=== PATIENT | male | born 1965 | race Caucasian/White ===

== ENCOUNTER 2025-07-11 07:44 | Emergency (ER) | payer OTHER, SELFPAY ==
[2025-07-11] VITALS (41 sets, daily range): BP systolic 138–172; BP diastolic 103–120; PULSE 91–130; TEMP 36.4; O2SAT 86–98; BMI 25.8
--- NOTE | 2025-07-11 07:50 | XR_ITS ---
[place] [id number] Patient Name: LASHELL VELASQUEZ MRN: [id number] date: 1965 Sex: M Assigned Patient Location: ED.MAIN Current Patient Location: ED.MAIN Accession/Order Number: [id number] Exam Date: 07/11/2025 08:59 Report Date: 07/11/2025 09:00 At the request of: NASIR NAVAS DO Procedure: XR chest 1V XR chest 1V 07/11/2025 8:48 AM SIGNS AND SYMPTOMS: ^chest pain ^Y PROTOCOL: Frontal radiograph of the chest COMPARISON: None FINDINGS: The trachea is midline. The heart and mediastinal structures are within normal limits. The lung parenchyma is clear. The bony thorax is intact. Degenerative changes are present in the shoulders and thoracic spine. XR/XR chest 1V IMPRESSION: No acute cardiopulmonary pathology. Impression dictated by: Huan Lazar M.D. 07/11/2025 9:00 AM Dictation Location: [place] [address] Electronically authenticated by: [id number] Y Date: 07/11/2025 09:00
--- NOTE | 2025-07-11 07:51 | CT_ITS ---
[address] [address] Patient Name: LASHELL VELASQUEZ MRN: [id number]:[id number] date: 1965 Sex: M Assigned Patient Location: ED.MAIN Current Patient Location: ED.MAIN Accession/Order Number: [id number] Exam Date: 07/11/2025 09:24 Report Date: 07/11/2025 09:33 At the request of: NASIR NAVAS DO Procedure: CT angio chest CT angio chest 07/11/2025 8:48 AM SIGN AND SYMPTOMS: Chest pain, Dissection protocol please CONTRAST: 100 mL of intravenous Omnipaque 350 TECHNIQUE: Multidetector CT axial slices of the chest were obtained with IV contrast. Multiplanar and 3-D reformats were performed and viewed on a separate workstation and reviewed to further define anatomy and possible pathology. CT was performed with one or more of the following dose reduction techniques: Automated exposure control, adjustment of the mA and/or kV according to patient size, or use of iterative reconstruction technique. COMPARISON: 07/11/2025. FINDINGS: Lower neck: Thyroid gland within normal limits, no supraclavicle adenopathy. Vessels: Atherosclerotic changes are noted in the thoracic aorta. There is no evidence of pulmonary embolism. The thoracic aorta is normal in course and caliber without evidence of dissection or aneurysmal dilatation. Mediastinum and Rupa: Calcified mediastinal and hilar lymph nodes are noted. Heart: Normal size. No pericardial effusion. Airways: Within normal limits Lungs: Emphysematous changes are noted in the lung parenchyma. Pleura: Within normal limits. Chest Wall: Within normal limits. Upper Abdomen: There is a 3.5 cm cyst in the right hepatic lobe. Bones: Degenerative changes are noted in the thoracic spine. There is a compression deformity of the superior endplate of the T4 vertebral body which is of uncertain acuity. CT/CT angio chest IMPRESSION: There is no evidence of pulmonary embolism. The thoracic aorta is normal in course and caliber without evidence of dissection or aneurysmal dilatation. There is a compression deformity of the superior endplate of the T4 vertebral body which is of uncertain acuity. Impression dictated by: Huan Lazar M.D. 07/11/2025 9:33 AM Dictation Location: [place] [address] Electronically authenticated by: [id number] Y Date: 07/11/2025 09:33
--- NOTE | 2025-07-11 07:53 | ED_ITS ---
HPI - Chest Pain General Chief Complaint: Chest Pain Stated Complaint: CHEST PAIN Time Seen by Provider: 07/11/25 07:50 Source: patient Mode of arrival: Wheelchair Limitations: no limitations History of Present Illness HPI narrative: The patient is a 59-year-old male with really an unknown medical history. He has not been to a doctor in greater than 20 years. His presenting to the emergency department this morning with complaints of chest and back pain. Patient states most of the pain is in his back between his shoulder blades. But he also has pain in his chest. The pain then radiates to his axilla which feels numb . Patient denies any pain in his jaw or abdomen. Patient denies shortness of breath but is tachypneic on acquisition of history. He denies any nausea or diaphoresis. Patient does not have any history of known coronary artery disease. No reported high blood pressure, high cholesterol, diabetes. Patient however does smoke cigars which she has 2-3 a day. Patient reports that he only drinks alcohol about once a week. His last time was where he states he had a couple of beers. Patient stated he woke up for work in his usual state of health and drove himself to work. But by 06:45 the chest pain developed and he was transported to the emergency department by coworker. Related Data Previous Rx's ?Medication ?Instructions ?Recorded albuterol sulfate 90 mcg/actuation 2 inh inhalation Q4 H PRN shortness 07/11/25 aerosol inhaler (Ventolin HFA) of breath or wheezing # 8.5 grams amlodipine 5 mg tablet (Norvasc) 5 mg PO DAILY #30 tab s 07/11/25 prednisone 10 mg tablet See Rx Instructions .Route 0 07/11/25 .COMPLEX #30 tabs Allergies Allergy/AdvReac Type Severity Reaction Status Date / Time No Known Drug Allergies Allergy Verified 07/11/25 07:46 Review of Systems ROS Narrative 10 Systems were reviewed, and unless not ed in the HPI, all other systems are reviewed, unremarkable, or noncontributory. [facility] Social History Little interest or pleasure in doing things: not at all Feeling down, depressed, or hopeless: not at all Exam Narrative Exam Narrative: Prior to examining the patient, I have washed with hospital approved and provided Antiseptic Hand Vacuum Pan Tender and have also applied gloves.? Prior to t ouching the patient, I asked for consent to examine the patient.? General: Alert and oriented, well nourished, moderate distress. Anxious in appearance. Face is very flushed. Eye: PERRL, EOMI, normal conjunctiva. HENT: Normocephalic, normal hearing, moist oral mucosa, no scleral icterus, patient had ketotic breath Neck: Supple, non-tender, no carotid bruits, no JVD, no lymphadenopathy. Lungs: Clear to auscultation and percussion, non-labored respiration. Coarse breath sounds with scant end expiratory wheezing. Tachypnea. Conversational dyspnea. Heart: Tachycardic rate, regular rhythm, no murmur, gallop or edema. Abdomen: Soft, non-tender, non-distended, normal bowel sounds, no masses. Musculoskeletal: Normal range of motion and strength, no tenderness or swelling. Skin: Skin is warm, dry and pink, no rashes or lesions. Neurologic: Awake, alert, and oriented X3, CN II-XII intact. Psychiatric: Cooperative, appropriate mood and affect.? Following the conclusion of the examination, I have washed my hands thoroughly after removing examination gloves. Constitutional Vital Signs, click to edit/add: Last Vital Signs Temp 97.6 F 07/11/25 07:46 Pulse 95 H 07/11/25 13:42 Resp 13 07/11/25 13:42 BP 154/110 H 07/11/25 13:42 Pulse Ox 94 L 07/11/25 13:42 O2 Del Method Room Air 07/11/25 13:42 O2 Flow Rate 4 07/11/25 09:56 Course Course Hospital Course: Patient arrived in the emergency department and all of the clinical staff attended to the patient very quickly. An EKG was quickly run, an IV was established and blood work was drawn. Reevaluation(s) Reevaluation #1: Updated the patient on his imaging and lab results. I explained to the patient that I think that he is dehydrated which would account for the acetone smell in his breath. In addition that could be why he was tachycardic as well as hemoconcentrated. Patient is already receiving 1 L normal saline bolus. He is responding very nicely to this as his heart rate is down to 105. Next, explained to the patient that his imaging studies of the chest looked good. No evidence of cardiomegaly or pneumonia. And there was no evidence on the CT scan of a thoracic dissection. At this time the patient is breathing fairly rapidly and although he did not explicitly complain of shortness of breath he does smoke and he does have some coarse breath sounds and therefore I will try to give him a breathing treatment to see if he improves. Patient understands this. Time: 09:38 Reevaluation #2: Patient reassessed at third time. He did really well after the second liter of fluid, methylprednisolone, and second breathing treatment. His heart rate has gone down into the 90s, his oxygen level is staying up and he speaks now in complete and full sentences and does not feel like his chest is as tight. At this time I explained to the patient that he likely has COPD. As stated before he has not seen a doctor in a couple of decades. Therefore he likely has COPD and needs to stop smoking. In addition, I am going to place him on blood pressure medications. Per JODY guidelines he is asymptomatic and it could be deferred to a primary care doctor. However, the patient does not have a primary care doctor and local delays may be a month or 2 before he is able to establish care which I think is inappropriate to leave the patient unprotected. Therefore organ to give the patient Norvasc 5 mg by mouth daily. We also can give the patient a prescription for steroid taper and an albuterol inhaler. At this time the patient feels comfortable going home and understands the precautions to return. All questions were answered to patient satisfaction Time: 13:16 Vital Signs Vital signs: Vital Signs Temperature 97.6 F 07/11/25 07:46 Pulse Rate 126 H 07/11/25 07:46 Respiratory Rate 24 H 07/11/25 07:46 Blood Pressure 160/110 H 07/11/25 07:46 Pulse Oximetry 95 07/11/25 07:46 Oxygen Delivery Method Room Air 07/11/25 07:46 Temperature 97.6 F 07/11/25 07:46 Pulse Rate 95 H 07/11/25 13:42 Respiratory Rate 13 07/11/25 13:42 Blood Pressure 154/110 H 07/11/25 13:42 Pulse Oximetry 94 L 07/11/25 13:42 Oxygen Delivery Method Room Air 07/11/25 13:42 Oxygen Delivery Flow Rate 4 07/11/25 09:56 MDM - Chest Pain MDM Narrative Medical decision making narrative: The patient is heart score is 4 he has MRI revealing diagnosis. And, the patient responded favorably to the treatment provided making it the more likely diagnosis. Patient would like to go home and appears nontoxic and in no acute distress. He knows how to access medical care and will return if his symptoms w orsen or change Differential Diagnosis Differential diagnosis: Likely pneumothorax, stable angina, unstable angina pectoris, atypical chest pain, st elevation myocardial infarction, chest pain and other (Aortic dissection, pancreatitis) Medical Records Data Attestation: I reviewed the patient's medical records. Lab Data Attestation: I reviewed the patient's lab results. Labs: Lab Results 07/11/25 07/11/25 07/11/25 Range/Units 07:51 07:55 08:24 WBC 11.4 H (4.0-11.0) 10^3/uL RBC 6.41 H (4.70-6.10) 10^6/uL Hgb 20.6 H (14.0-18.0) g/dL Hct 60.2 H (42.0-54.0) % MCV 93.9 (80.0-94.0) fL MCH 32.1 (25.9-34.0) pg MCHC 34.2 (29.9-35.2) g/dL RDW 13.3 (11.0-15.0) % Plt Count 239 (150-450) 10^3/uL MPV 9.8 (9.5-13.5) fL Neut % (Auto) 75.9 H (43.0-75.0) % Lymph % (Auto) 14.3 L (20.5-60.0) % [place] % (Auto) 8.4 (1.7-12.0) % Eos % (Auto) 0.3 L (0.9-7.0) % Baso % (Auto) 0.7 (0.2-2.0) % Neut # (Auto) 8.6 H (1.4-6.5) 10^3/uL Lymph # (Auto) 1.6 (1.2-3.8) 10^3/uL [place] # (Auto) 1.0 H (0.3-0.8) 10^3/uL Eos # (Auto) 0.0 (0.0-0.7) 10^3/uL Baso # (Auto) 0.1 (0.0-0.1) 10^3/uL Abs Immat Gran (auto) 0.05 H (0.00-0.03) 10^3/uL Imm/Tot Granulo (auto) 0.4 (0.0-0.5) % APTT 24.9 (22.3-36.2) sec Sodium (136-145) mmol/L Potassium (3.5-5.1) mmol/L Chloride (98-107) mmol/L Carbon Dioxide (21.0-32.0) mmol/L Anion Gap BUN (7.0-18.0) mg/dL Creatinine (0.70-1.30) mg/dL Est GFR ( Amer) (>=60 mL/min/1.73m^2) Est GFR (Non-Af Amer) (>=60 mL/min/1.73m^2) BUN/Creatinine Ratio Glucose (74-106) mg/dL Calcium (8.5-10.1) mg/dL Total Bilirubin (0.2-1.0) mg/dL AST (15-37) U/L ALT (16-63) U/L Alkaline Phosphatase (46-116) U/L Troponin I High Sens (4.0-76.1) pg/mL Total Protein (6.4-8.2) g/dL Albumin (3.4-5.0) g/dL Globulin g/dL Albumin/Globulin Ratio Lipase (16.0-77.0) U/L Ethanol Quant mg/dL Acetone, Qual Small A (NEGATIVE) POC Glucose 135 H (74-106) mg/dL 07/11/25 07/11/25 Range/Units 08:37 09:50 WBC (4.0-11.0) 10^3/uL RBC (4.70-6.10) 10^6/uL Hgb (14.0-18.0) g/dL Hct (42.0-54.0) % MCV (80.0-94.0) fL MCH (25.9-34.0) pg MCHC (29.9-35.2) g/dL RDW (11.0-15.0) % Plt Count (150-450) 10^3/uL MPV (9.5-13.5) fL Neut % (Auto) (43.0-75.0) % Lymph % (Auto) (20.5-60.0) % [place] % (Auto) (1.7-12.0) % Eos % (Auto) (0.9-7.0) % Baso % (Auto) (0.2-2.0) % Neut # (Auto) (1.4-6.5) 10^3/uL Lymph # (Auto) (1.2-3.8) 10^3/uL [place] # (Auto) (0.3-0.8) 10^3/uL Eos # (Auto) (0.0-0.7) 10^3/uL Baso # (Auto) (0.0-0.1) 10^3/uL Abs Immat Gran (auto) (0.00-0.03) 10^3/uL Imm/Tot Granulo (auto) (0.0-0.5) % APTT (22.3-36.2) sec Sodium 137 (136-145) mmol/L Potassium 4.2 (3.5-5.1) mmol/L Chloride 99 (98-107) mmol/L Carbon Dioxide 23.6 (21.0-32.0) mmol/L Anion Gap 18.6 BUN 18.0 (7.0-18.0) mg/dL Creatinine 1.03 (0.70-1.30) mg/dL Est GFR ( Amer) >60 (>=60 mL/min/1.73m^2) Est GFR (Non-Af Amer) >60 (>=60 mL/min/1.73m^2) BUN/Creatinine Ratio 17.5 Glucose 123 H (74-106) mg/dL Calcium 9.5 (8.5-10.1) mg/dL Total Bilirubin 0.7 (0.2-1.0) mg/dL AST 24 (15-37) U/L ALT 20 (16-63) U/L Alkaline Phosphatase 101 (46-116) U/L Troponin I High Sens 25.3 34.2 (4.0-76.1) pg/mL Total Protein 8.0 (6.4-8.2) g/dL Albumin 3.9 (3.4-5.0) g/dL Globulin 4.1 g/dL Albumin/Globulin Ratio 1.0 Lipase 28.0 (16.0-77.0) U/L Ethanol Quant <3 mg/dL Acetone, Qual (NEGATIVE) POC Glucose (74-106) mg/dL Imaging Data Chest x-ray: Radiologist's impression: ITS Impressions Chest X-Ray 07/11/25 07:50 IMPRESSION: No acute cardiopulmonary pathology. Impression dictated by: Huan Lazar M.D. 07/11/2025 9:00 AM Dictation Location: [place] Electronically authenticated by: [id number] Y Date: 07/11/2025 09:00 Chest CTA 07/11/25 07:51 IMPRESSION: There is no evidence of pulmonary embolism. The thoracic aorta is normal in course and caliber without evidence of dissection or aneurysmal dilatation. There is a compression deformity of the superior endplate of the T4 vertebral body which is of uncertain acuity. Impression dictated by: Huan Lazar M.D. 07/11/2025 9:33 AM Dictation Location: [place] Electronically authenticated by: [id number] Y Date: 07/11/2025 09:33 ECG Data Attestation: I personally reviewed and interpreted this ECG as follows: ECG interpretation date: 07/11/25 ECG interpretation time: 07:47 Prior ECG tracings: not available for review Ischemic changes: non-specific ST-T wave changes Interpretation: Twelve-lead EKG reveals sinus tachycardia with a ventricular of 126 bpm. The ND interval and QRS duration within normal is. QTc is not prolonged. Patient has diffuse ST segment depression in all leads. But no evidence of ST segment elevation. Patient has evidence of left atrial enlargement. Summary: Abnormal EKG without evidence of STEMI criteria. EKG #2 was performed at 755 and was interpreted at 756. It revealed less artifact with the patient's breathing. In addition, he was less tachycardic which allowed greater distinction of his wave morphology. Revealed a sinus tachycardia at this time with a ventricular of 104 bpm. The ND interval and QRS duration are normal. QTc is not prolonged. Patient has improvement of his perceived ST segment depressions. Patient still has evidence of left atrial enlargement. Summary: Abnormal EKG without evidence of STEMI criteria. Heart Score History: Moderately Suspicious ECG: NS Repolarization Age: >45-<65 years Risk Factors: No Risk Factors Troponin: <3X Normal Limit Total Heart Score Recommendations & Risks:: 4 Discharge Plan Discharge Chief Complaint: Chest Pain Clinical Impression: Chest pain, Acute exacerbation of chronic obstructive pulmonary disease, Hypertension, Acute dehydration Patient Disposition: Home, Self-Care Time of Disposition Decision: 13:18 Condition: Good Mode of Transportation: Private Vehicle Prescriptions / Home Meds: New albuterol sulfate [Ventolin HFA] 90 mcg/actuation HFA aerosol inhaler 2 inh inhalation Q4H PRN (Reason: shortness of breath or wheezing) Qty: 8.5 0RF prednisone 10 mg tablet See Rx Instructions .ROUTE .COMPLEX Qty: 30 0RF Rx Instructions: 4 tabs x 3 days, 3 tabs x 3 days, 2 tabs x 3 days, 1 tab x 3 days amlodipine [Norvasc] 5 mg tablet 5 mg PO DAILY Qty: 30 0RF Print Language: Argentine Instructions: Chest Pain (ED), Dehydration (ED), COPD (Chronic Obstructive P ulmonary Disease) (ED), Hypertension (ED) Additional Instructions: Thank you for trusting me with your care. I really appreciate you trusting us. Please note that you should stop smoking. Continue to do your daily walks. That would be very helpful especially when you transition to stop smoking. I really would like for you to start taking blood pressure medication. Lets protect your brain, kidneys, and heart. Lets establish primary care. I think that would be super helpful for long-term health. And lets make sure we are trying to drink 8-10 8 ounce glasses of water a day. You were fairly dehydrated here and did contribute to your symptoms. Referrals: Physician,Non-Staff, [Primary Care Provider] - 1 week Discharge Date/Time: 07/11/25 13:44
--- NOTE | 2025-07-11 07:57 | ECG_ITS ---
[facility] Test Date: 2025-07-11 Pat Name: LASHELL VELASQUEZ Department: Room: - Gender: Male [employer] Chief: : 1965 Requested By: [id number] Order Number: [id number] Reading MD: YANN BHANDARI M.D. Measurements Intervals Turner Rate: 104 P: 67 MS: 120 QRS: 80 QRSD: 80 T: 75 QT: 330 QTc: 391 Interpretive Statements 1120 Sinus tachycardia 1108 Marked sinus arrhythmia [address] depression 0102 ARTIFACT PRESENT 9150 abnormal ECG No previous ECG available for comparison Electronically Signed On 07-11-2025 17:48:30 EDT by YANN BHANDARI M.D.
[2025-07-11] MEDS: NITROGLYCERIN 0.4 MG BOTTLE PO (08:02)
[2025-07-11] MEDS: ASPIRIN 81 MG TAB.CHEW 324 MG PO (08:02)
[2025-07-11] MEDS: 0.9 % SODIUM CHLORIDE 1,000 ML 100 ML IV (08:02)
[2025-07-11] MEDS: MORPHINE SULFATE 4 MG/ML VIAL IV (08:02)
[2025-07-11 08:03] LABS: Hematocrit 60.2 % (42.0-54.0); Hemoglobin 20.6 g/dL (14.0-18.0); Immature Granulocytes Abs Auto 0.05 10^3/uL (0.00-0.03); Immature Granulocytes Pct Auto 0.4 % (0.0-0.5); Lymphocytes Absolute Auto 1.6 10^3/uL (1.2-3.8); Mean Corpuscular HGB Conc 34.2 g/dL (29.9-35.2); Mean Corpuscular Hemoglobin 32.1 pg (25.9-34.0); Mean Corpuscular Volume 93.9 fL (80.0-94.0); Platelet Count 239 10^3/uL (150-450); Red Blood Count 6.41 10^6/uL (4.70-6.10); White Blood Count 11.4 10^3/uL (4.0-11.0)
[2025-07-11 08:47] LABS: Partial Thromboplastin Time 24.9 sec (22.3-36.2)
[2025-07-11 09:04] LABS: Alanine Aminotransferase 20 U/L (16-63); Albumin Globulin Ratio 1.0; Albumin Level 3.9 g/dL (3.4-5.0); Alkaline Phosphatase 101 U/L (46-116); Anion Gap 18.6; Blood Urea Nitrogen 18.0 mg/dL (7.0-18.0); Calcium 9.5 mg/dL (8.5-10.1); Carbon Dioxide 23.6 mmol/L (21.0-32.0); Chloride 99 mmol/L (98-107); Estimated GFR (African America >60 (>=60 mL/min/1.73m^2); Estimated GFR (Non-African Ame >60 (>=60 mL/min/1.73m^2); Globulin 4.1 g/dL; Glucose 123 mg/dL (74-106); Lipase 28.0 U/L (16.0-77.0); Sodium 137 mmol/L (136-145); Total Protein 8.0 g/dL (6.4-8.2)
[2025-07-11 09:05] LABS: Aspartate Amino Transferase 24 U/L (15-37); Potassium 4.2 mmol/L (3.5-5.1)
[2025-07-11] MEDS: IPRATROPIUM/ALBUTEROL SULFATE 3 ML AMPUL.NEB IH ×2 (09:55→12:37)
[2025-07-11] MEDS: METHYLPREDNISOLONE SOD SUCC PF 125 MG/2 ML VIAL IVP (12:33)
[2025-07-11] MEDS: 0.9 % SODIUM CHLORIDE 1,000 ML 1000 ML IV (12:33)
== END 2025-07-11 13:44 | disposition home or self-care (01) ==
PROVIDERS: Emergency Provider Emergency Medicine
DX: J44.1 Chronic obstructive pulmonary disease with (acute) exacerbation (principal); R07.9 Chest pain, unspecified; E86.0 Dehydration; I10 Essential (primary) hypertension; F17.290 Nicotine dependence, other tobacco product, uncomplicated
CPT/HCPCS: 36415; 71045; 71275; 80053; 80307; 80320; 82009; 83690; 84484; 85025; 85730; 93005; 94640; 96361; 96374; 96375; 99285; J2270; J2405; J2919; Q9967